=== PATIENT | male | born 1995 | race African-American/Black ===

== ENCOUNTER 2020-02-09 19:47 | Emergency (ER) | payer BC ==
[~2020-02-09] VITALS: Ht 175.3 cm; Wt 77.0 kg
[2020-02-09 19:55] VITALS: BP 142/83
[2020-02-09] MEDS ORDERED: FLUORESCEIN OPHTH TEST STRIP. ONE (20:04)
[2020-02-09] MEDS ORDERED: TETRACAINE 0.5% OPHTH SOLUTION 4ML BOTTLE. ONE (20:04)
[2020-02-09] MEDS ORDERED: HYDR-2761 PO (21:24)
[2020-02-09] MEDS ORDERED: ERYT1OIN6 OD (21:24)
--- NOTE | 2020-02-09 21:25 | PHYS DOC ---
Past Medical History Past Medical History: No Pertinent History Past Surgical History: No Surgical History Smoking Status: Never Smoker Alcohol Use: None General Adult EDM: Chief Complaint: EYE PROBLEMS HPI: HPI: Patient is a 24 year old AA male, accompanied by his mother, who presents to the emergency department with complaints of right eye pain and blurry vision after being struck by a rock in his right eye while mowing today. Patient states that he was not wearing any protective eyewear. He denies any decreased vision, reports that his eye has been tearing and it hurts if he opens his eye. He reports that the injury happened at approximately 1530 this afternoon. He denies any headache, nausea, vomiting, neck pain, or loss of consciousness. Patient reports his last tetanus shot was less than 5 years ago. Review of Systems: Review of Systems: Complete review of systems is negative unless otherwise documented in the HPI. Heart Score: Risk Factors: Risk Factors: DM, Current or recent (<one month) smoker, HTN, HLP, family history of CAD, obesity. Risk Scores: Score 0 - 3: 2.5% MACE over next 6 weeks - Discharge Home Score 4 - 6: 20.3% MACE over next 6 weeks - Admit for Clinical Observation Score 7 - 10: 72.7% MACE over next 6 weeks - Early Invasive Strategies Current Medications: Current Medications Medications (Trade) Dose Ordered Sig/Mesfin Start Time Stop Time Status Last Admin Dose Admin Acetaminophen/ Hydrocodone Bitart (Lortab 5/325) 1 tab 1X ONCE 02/09/20 21:30 02/09/20 21:31 Erythromycin (Romycin) 0.5 inch 1X ONCE 02/09/20 21:30 02/09/20 21:31 Fluorescein Sodium (Ful-Nora) 1 strip 1X ONCE 02/09/20 21:30 02/09/20 21:31 02/09/20 20:58 1 STRIP Tetracaine HCl (Tetracaine) 1 drop 1X ONCE 02/09/20 21:30 02/09/20 21:31 02/09/20 20:58 1 DROP Allergies: Allergies: Allergies Coded Allergies Type Severity Reaction Last Updated Verified amoxicillin Allergy Intermediate fever 02/09/20 Yes Physical Exam: PE: Constitutional: Well developed, well nourished, no acute distress, non-toxic appearance. [] HENT: Normocephalic, atraumatic, bilateral external ears normal, nose normal. [] Eyes: PERRLA, EOMI, left eye conjunctiva normal, no discharge from left eye; right eye conjunctive a injected, watery drainage from the right eye, no visible foreign body.. [] Neck: Normal range of motion, no stridor. [] Cardiovascular:Heart rate regular rhythm Lungs & Thorax: Respirations even and unlabored, no retractions, no respiratory distress Skin: Warm, dry, no erythema, no rash. [] Extremities: No cyanosis, ROM intact, no edema. [] Neurologic: Alert and oriented X 3, no focal deficits noted. [] Psychologic: Affect normal, judgement normal, mood normal. [] Current Patient Data: Vital Signs: Vital Signs Date Time Temp Pulse Resp B/P (MAP) Pulse Ox O2 Delivery O2 Flow Rate FiO2 02/09/20 19:55 99.0 70 16 142/83 (102) 100 Room Air 99.0 EKG: EKG: [] Radiology/Procedures: Radiology/Procedures: Using tetracaine and fluroscein the patient's right eye was examined under Wood's lamp and an area of uptake was noted over the medial pupil and iris, no visible foreign body Patient's ocular symptoms have stabilized while they have been evaluated in the department and are appropriate for outpatient work up. No evidence of ruptured globe, retinal detachment, acute angle closure glaucoma, or deep space infection. Plan for 24 hour ophthalmologic follow up. [] Course & Med Decision Making: Course & Med Decision Making Pertinent Labs and Imaging studies reviewed. (See chart for details) [] Dragon Disclaimer: Dragon Disclaimer: This electronic medical record was generated, in whole or in part, using a voice recognition dictation system. Departure Departure Impression: Primary Impression: Injury of conjunctiva and corneal abrasion of right eye w/o FB Qualified Codes: S05.01XA - Injury of conjunctiva and corneal abrasion without foreign body, right eye, initial encounter Disposition: HOME, SELF-CARE Condition: STABLE Referrals: UNKNOWN PCP NAME (PCP) Primitivo GASTON MD Patient Instructions: Eye - Corneal Abrasion, [id number] Additional Instructions: Fill the prescriptions and use them as directed. Follow-up with your eye doctor or Dr. Gaston tomorrow for repeat eye exam. Return to the ER if your symptoms worsen or your vision changes. Scripts Hydrocodone Bit/Acetaminophen (HYDROCODONE-APAP 5-325 ) 1 Tab Tablet 0.5-1 TAB PO PRN Q6HRS PRN for SEVERE PAIN 7-10, #6 TAB 0 Refills Prov: RAOUL OSEI SET MAKING MACHINE OPERATOR 02/09/20 Erythromycin Base (Erythromycin) 1 Gm Oint...g. 0.5 INCH OD QID for 5 Days, #1 TUBE 0 Refills Prov: RAOUL OSEI SET MAKING MACHINE OPERATOR 02/09/20 Justicifation of Admission Dx: Justifications for Admission: Justification of Admission Dx: N/A RAOUL OSEI SET MAKING MACHINE OPERATOR Feb 09, 2020 21:25
[2020-02-09] MEDS ORDERED: ERYTHROMYCIN 0.5% OPHTH OINTMENT 1GM TUBE. OD ONE (21:30)
[2020-02-09] MEDS ORDERED: TETRACAINE 0.5% OPHTH SOLUTION 4ML BOTTLE. OD ONE (21:30)
[2020-02-09] MEDS ORDERED: FLUORESCEIN OPHTH TEST STRIP. OD ONE (21:30)
[2020-02-09] MEDS ORDERED: HYDROcodone/APAP 5/325MG 1 TAB TABLET PO ONE (21:30)
== END 2020-02-09 21:48 | disposition home or self-care (01) ==
LOC: ER 19:47
DX: S05.01XA Injury of conjunctiva and corneal abrasion without foreign body, right eye, initial encounter (principal); H53.8 Other visual disturbances; W20.8XXA Other cause of strike by thrown, projected or falling object, initial encounter; Y93.89 Activity, other specified; Y92.89 Other specified places as the place of occurrence of the external cause; Y99.8 Other external cause status
CPT/HCPCS: 99283